=== PATIENT | female | born 1965 | race American Indian/Alaskan Native ===

== ENCOUNTER 2018-02-21 14:38 | Inpatient (IN) | payer OTHER ==
[2018-02-21 16:01] LABS: Basophils % (Auto) 0.8 % (0.0-1.8); Eosinophils % (Auto) 0.1 % (0.0-4.3); Hematocrit 45.9 % (30.3-42.9); Hemoglobin 15.1 gm/dl (10.1-14.3); Lymphocytes # (Auto) 0.9 K/mm3 (1.2-5.4); Lymphocytes % (Auto) 19.9 % (13.4-35.0); Mean Corpuscular HGB Conc 33 % (30-34); Mean Corpuscular Hemoglobin 32 pg (28-32); Mean Corpuscular Volume 98 fl (79-97); Monocytes # (Auto) 0.3 K/mm3 (0.0-0.8); Monocytes % (Auto) 6.1 % (0.0-7.3); Platelet Count 214 K/mm3 (140-440); Red Blood Count 4.69 M/mm3 (3.65-5.03); Red Cell Distribution Width 14.9 % (13.2-15.2)
[2018-02-21 16:22] LABS: BUN/Creatinine Ratio 14; Blood Urea Nitrogen 7 mg/dL (7-17); Calcium 8.6 mg/dL (8.4-10.2); Hemolysis Index 7
--- NOTE | 2018-02-21 16:53 | Emergency Department Report ---
History of Present Illness - General Chief Complaint: Overdose Stated Complaint: POSSIBLE OD Time Seen by Provider: 02/21/18 16:48 Source: patient, EMS Mode of arrival: Stretcher Limitations: No Limitations - History of Present Illness Initial Comments: She is a 52-year-old female presents to emergency room via EMS for overdose on trazodone. Patient states she took 20 trazodone in an attempt to kill herself. Patient states she was depressed and she wanted to end it all patient denies any physical complaints except for being sleepy. Patient denies taking any other drugs. Patient states she was drinking the night before. Patient denies chest pain or shortness of breath. Patient denies abdominal pain. Patient denies headache. MD Complaint: intentional overdose -: Sudden Intent: suicide attempt How Overdose Was Discovered: called family/friend Context: Intentional Overdose: financial issues Associated Symptoms: depression Treatments Prior to Arrival: oxygen - Related Data Allergies Allergy/AdvReac Type Severity Reaction Status Date / Time No Known Allergies Allergy Verified 02/21/18 15:25 ED Review of Systems ROS: Stated complaint: POSSIBLE OD Other details as noted in HPI Comment: All other systems reviewed and negative Constitutional: denies: chills, fever Eyes: denies: eye pain, eye discharge, vision change ENT: denies: ear pain, throat pain Respiratory: denies: cough, shortness of breath, wheezing Cardiovascular: denies: chest pain, palpitations Endocrine: no symptoms reported Gastrointestinal: denies: abdominal pain, nausea, diarrhea Genitourinary: denies: urgency, dysuria, discharge Musculoskeletal: denies: back pain, joint swelling, arthralgia Skin: denies: rash, lesions Neurological: denies: headache, weakness, paresthesias Psychiatric: denies: anxiety, depression Hematological/Lymphatic: denies: easy bleeding, easy bruising ED Past Medical Hx - Past Medical History Previous Medical History?: Yes Hx Psychiatric Treatment: Yes - Surgical History Past Surgical History?: No - Family History Family history: no significant - Social History Smoking Status: Current Every Day Smoker Substance Use Type: Alcohol ED Physical Exam - General Limitations: No Limitations General appearance: alert, in no apparent distress, lethargic (but easily arousable) - Head Head exam: Present: atraumatic, normocephalic - Eye Eye exam: Present: normal appearance - ENT ENT exam: Present: mucous membranes moist - Neck Neck exam: Present: normal inspection - Respiratory Respiratory exam: Present: normal lung sounds bilaterally. Absent: respiratory distress - Cardiovascular Cardiovascular Exam: Present: regular rate, normal rhythm. Absent: systolic murmur, diastolic murmur, rubs, gallop - GI/Abdominal GI/Abdominal exam: Present: soft, normal bowel sounds - Extremities Exam Extremities exam: Present: normal inspection - Back Exam Back exam: Present: normal inspection - Neurological Exam Neurological exam: Present: alert, oriented X3 - Psychiatric Psychiatric exam: Present: depressed - Skin Skin exam: Present: warm, dry, intact, normal color. Absent: rash ED Course Vital Signs 02/21/18 02/21/18 02/21/18 15:01 15:23 15:30 Temperature 97.6 F 98.7 F Pulse Rate 104 H 113 H Respiratory 14 14 Rate Blood Pressure 196/78 Blood Pressure 142/87 [Left] O2 Sat by Pulse 98 97 97 Oximetry - Reevaluation(s) Reevaluation #1: 1013 signed 02/21/18 16:49 Reevaluation #2: Poison control contacted and recommendations received. Poison control recommends observation and periodic EKGs due to the risk of QT prolongation also recommended watch for lethargy and bradycardia. Recommend a normal overdose labs 02/21/18 16:53 Reevaluation #3: Will admit patient to hospitalist service for further evaluation and treatment. Will admitted to obs 02/21/18 19:02 Reevaluation #4: Consultation the plan of care and admission. Also discussed all results with the patient 02/21/18 19:04 ED Medical Decision Making - Lab Data Result diagrams: 02/21/18 15:43 02/21/18 15:43 - EKG Data -: EKG Interpreted by [facility] EKG shows normal: sinus rhythm, axis, intervals, QRS complexes, ST-T waves Rate: normal - EKG Data Interpretation: no acute changes, normal EKG - Medical Decision Making 52-year-old female who presents emergency room with a suicide attempt by overdose with trazodone. Will admit patient for observation in order to monitor EKGs and vital signs. - Differential Diagnosis overdose. Suicidal ideations and suicide attempts. Lethargy. Depression Critical Care Time: Yes Critical care attestation.: If time is entered above; I have spent that time in minutes in the direct care of this critically ill patient, excluding procedure time. Critical Care Time: 30 minutes spent for Critical care time ED Disposition Clinical Impression: Suicidal ideation, Suicide attempt Overdose Qualifiers: Encounter type: initial encounter Injury intent: intentional self-harm Qualified Code(s): T50.902A - Poisoning by unspecified drugs, medicaments and biological substances, intentional self-harm, initial encounter Disposition: DC09 OP ADMIT IP TO THIS HOSP Is pt being admited?: Yes Does the pt Need Aspirin: No Condition: Serious Time of Disposition: 19:04
[2018-02-21 17:48] LABS: Bilirubin,Urine NEG (Negative); Blood,Urine NEG (Negative); Color,Urine Yellow (Yellow); Mucus,Urine 2+ /HPF; Urobilinogen,Urine < 2.0 mg/dL (<2.0)
[2018-02-21 17:52] LABS: Benzodiazepines Screen,Urine PRESUMPTIVE NEGATIVE; Cocaine Screen,Urine PRESUMPTIVE NEGATIVE; Methadone Screen,Urine PRESUMPTIVE NEGATIVE; Opiate Screen,Urine PRESUMPTIVE NEGATIVE
[2018-02-21 19:00] LABS: Amphetamine Screen,Urine PRESUMPTIVE POSITIVE; Cannabinoid Screen,Urine PRESUMPTIVE POSITIVE
--- NOTE | 2018-02-21 20:12 | History and Physical Report ---
History of Present Illness Chief complaint: I took pills History of present illness: 52 YO Female with Depression, HTN, Nicotine Dependence, ETOH Abuse presents to ED for evaluation. Pt states that she has been feeling sad, depresssed, helpless , and hopeless and took 20 Trazodone tablets in an attempt to take her own life. Pt was found confused, and lethargic by a family member. EMS notified, and upon arrival the patient was found to be lethargic. Pt transported to [facility] for further care and evaluation. Upon arrival, the patient was found to be encephalopathic, but is able to protect her airway. Poison Control notified. Pt admitted to telemetry. No reports of fever, chills, CP, Palpitations, NVD, Trauma, productive cough, abdominal pain, skin rash, headache, or recent ill contacts. Past History Past Medical History: hypertension Past Surgical History: No surgical history, Other (reviewed) Social history: single, smoking, alcohol abuse Family history: hypertension Medications and Allergies Allergies Allergy/AdvReac Type Severity Reaction Status Date / Time No Known Allergies Allergy Verified 02/21/18 15:25 Review of Systems ROS unobtainable: due to mental status Exam - Constitutional Vitals: Temp Pulse Resp BP Pulse Ox 98.7 F 113 H 14 142/87 97 02/21/18 15:23 02/21/18 15:23 02/21/18 15:23 02/21/18 15:23 02/21/18 15:30 General appearance: Present: no acute distress, disheveled - EENT Eyes: Present: PERRL ENT: hearing intact, clear oral mucosa - Neck Neck: Present: supple, normal ROM - Respiratory Respiratory effort: normal Respiratory: bilateral: diminished - Cardiovascular Heart Sounds: Present: S1 & S2. Absent: rub, click - Extremities Extremities: pulses symmetrical, No edema Peripheral Pulses: within normal limits - Abdominal General gastrointestinal: Present: soft, non-tender, non-distended, normal bowel sounds Female genitourinary: Present: normal - Integumentary Integumentary: Present: clear, warm, dry - Musculoskeletal Musculoskeletal: generalized weakness - Psychiatric Psychiatric: no intact judgment & insight, no memory intact, depressed - Neurologic Neurologic: CNII-XII intact, moves all extremities Results - Labs CBC & Chem 7: 02/21/18 15:43 05/04/18 15:43 Labs: Abnormal lab results 05/04/18 05/04/18 05/04/18 Range/Units 15:43 15:43 15:43 WBC (4.5-11.0) K/mm3 Hgb (10.1-14.3) gm/dl Hct (30.3-42.9) % MCV (79-97) fl Lymph # (1.2-5.4) K/mm3 Seg Neutrophils % (40.0-70.0) % Sodium 147 H (137-145) mmol/L Creatinine 0.5 L (0.7-1.2) mg/dL Salicylates < 0.3 L (2.8-20.0) mg/dL Acetaminophen < 5.0 L (10.0-30.0) ug/mL Plasma/Serum Alcohol (0-0.07) % 18 02/21/18 Range/Units 15:43 15:43 WBC 4.4 L (4.5-11.0) K/mm3 Hgb 15.1 H (10.1-14.3) gm/dl Hct 45.9 H (30.3-42.9) % MCV 98 H (79-97) fl Lymph # 0.9 L (1.2-5.4) K/mm3 Seg Neutrophils % 73.1 H (40.0-70.0) % Sodium (137-145) mmol/L Creatinine (0.7-1.2) mg/dL Salicylates (2.8-20.0) mg/dL Acetaminophen (10.0-30.0) ug/mL Plasma/Serum Alcohol 0.15 H (0-0.07) % Assessment and Plan - Patient Problems (1) Encephalopathy Current Visit: Yes Status: Acute Plan to address problem: CT head, neuro check, seizure precautions, IVF resuscitation. (2) Drug overdose, intentional Current Visit: Yes Status: Acute Qualifiers: Encounter type: initial encounter Qualified Code(s): T50.902A - Poisoning by unspecified drugs, medicaments and biological substances, intentional self- harm, initial encounter Plan to address problem: Poison control notified in ED, serial ekg (3) Suicide attempt Current Visit: Yes Status: Acute Plan to address problem: [address]3 [address] place, psychiatry consult (4) Alcohol withdrawal Current Visit: Yes Status: Acute Qualifiers: Complication of substance-induced condition: with delirium Qualified Code(s ): F10.231 - Alcohol dependence with withdrawal delirium Plan to address problem: CT Head, neuro checks, CIWA protocol, banana bag (5) DVT prophylaxis Current Visit: Yes Status: Acute Plan to address problem: scd to ble while in bed
[2018-02-21] MEDS ORDERED: TYLENOL PO PRN (20:22)
[2018-02-21] MEDS ORDERED: PROVENTIL IH PRN (20:22)
[2018-02-21] MEDS ORDERED: ATIVAN IV PRN (20:22)
[2018-02-21] MEDS ORDERED: ZOFRAN IV PRN (20:22)
[2018-02-21] MEDS ORDERED: SODIUM CHLORIDE FLUSH SYRINGE 10 ML IV PRN (20:22)
[2018-02-21] MEDS ORDERED: VITAMIN B-1 100 MG, FOLVITE 1 MG, INFUVITE 10 ML in NACL 0.9% 1000 ML 1,000 ML IV ONE (20:27)
--- NOTE | 2018-02-21 21:16 | Cat Scan Report ---
FINAL REPORT PROCEDURE: CT HEAD/BRAIN WO CON TECHNIQUE: Computerized tomography of the head was performed without contrast material. HISTORY: confusion COMPARISON: No prior studies are available for comparison. FINDINGS: Skull and scalp: Normal. Paranasal sinuses: Normal. Ventricles and subarachnoid spaces: Normal. Cerebrum: No evidence of hemorrhage, acute infarction or mass . Cerebellum and brainstem: No evidence of hemorrhage, acute infarction or mass. Vasculature: Normal. Comments: None. IMPRESSION: Normal Examination
[2018-02-21] MEDS: SODIUM CHLORIDE FLUSH SYRINGE 10 ML IV SCH (21:42)
--- NOTE | 2018-02-22 08:08 | Progress Note ---
Assessment and Plan Assessment and plan: (1) Encephalopathy Current Visit: Yes Status: Acute Plan to address problem: CT head, neuro check, seizure precautions, IVF resuscitation. (2) Drug overdose, intentional Current Visit: Yes Status: Acute Qualifiers: Encounter type: initial encounter Qualified Code(s): T50.902A - Poisoning by unspecified drugs, medicaments and biological substances, intentional self-harm, initial encounter Plan to address problem: Poison control notified in ED, serial ekg (3) Suicide attempt Current Visit: Yes Status: Acute Plan to address problem: [address] place, psychiatry consult (4) Alcohol withdrawal Current Visit: Yes Status: Acute Qualifiers: Complication of substance-induced condition: with delirium Qualified Code(s): F10.231 - Alcohol dependence with withdrawal delirium Plan to address problem: CT Head, neuro checks, CIWA protocol, banana bag (5) DVT prophylaxis Current Visit: Yes Status: Acute Plan to address problem: scd to ble while in bed History Interval history: Sincerely and examined medical records reviewed Patient complains of severe depression, helplessness and hopelessness Had similar symptoms and subsegments in the past Feels slightly better, teary and depressed Vital signs reviewed Safety seat at the bedside Hospitalist Physical - Constitutional Vitals: Temp Pulse Resp BP Pulse Ox 99.7 F H 85 20 118/71 91 02/22/18 00:51 02/22/18 05:43 02/22/18 05:43 02/22/18 05:43 02/22/18 05:43 General appearance: Present: no acute distress, obese, disheveled, other ( depressed) - EENT Eyes: Present: PERRL, EOM intact - Neck Neck: Present: supple, normal ROM - Respiratory Respiratory effort: normal Respiratory: bilateral: diminished, negative: rales, rhonchi, wheezing - Cardiovascular Rhythm: regular Heart Sounds: Present: S1 & S2 - Extremities Extremities: no ischemia, No edema Peripheral Pulses: within normal limits - Abdominal General gastrointestinal: soft, non-tender, non-distended, normal bowel sounds - Integumentary Integumentary: Present: clear, warm - Psychiatric Psychiatric: appropriate mood/affect, cooperative - Neurologic Neurologic: CNII-XII intact, moves all extremities Results - Labs CBC & Chem 7: 02/21/18 15:43 02/21/18 15:43 Labs: Laboratory Last Values WBC 4.4 K/mm3 (4.5-11.0) L 02/21/18 15:43 RBC 4.69 M/mm3 (3.65-5.03) 02/21/18 15:43 Hgb 15.1 gm/dl (10.1-14.3) H 02/21/18 15:43 Hct 45.9 % (30.3-42.9) H 02/21/18 15:43 MCV 98 fl (79-97) H 02/21/18 15:43 MCH 32 pg (28-32) 02/21/18 15:43 MCHC 33 % (30-34) 02/21/18 15:43 RDW 14.9 % (13.2-15.2) 02/21/18 15:43 Plt Count 214 K/mm3 (140-440) 02/21/18 15:43 Lymph % (Auto) 19.9 % (13.4-35.0) 02/21/18 15:43 [place] % (Auto) 6.1 % (0.0-7.3) 02/21/18 15:43 Eos % (Auto) 0.1 % (0.0-4.3) 02/21/18 15:43 Baso % (Auto) 0.8 % (0.0-1.8) 02/21/18 15:43 Lymph # 0.9 K/mm3 (1.2-5.4) L 02/21/18 15:43 [place] # 0.3 K/mm3 (0.0-0.8) 02/21/18 15:43 Eos # 0.0 K/mm3 (0.0-0.4) 02/21/18 15:43 Baso # 0.0 K/mm3 (0.0-0.1) 02/21/18 15:43 Seg Neutrophils % 73.1 % (40.0-70.0) H 02/21/18 15:43 Seg Neutrophils # 3.2 K/mm3 (1.8-7.7) 02/21/18 15:43 Sodium 147 mmol/L (137-145) H 02/21/18 15:43 Potassium 3.6 mmol/L (3.6-5.0) 02/21/18 15:43 Chloride 103.8 mmol/L (98-107) 02/21/18 15:43 Carbon Dioxide 25 mmol/L (22-30) 02/21/18 15:43 Anion Gap 22 mmol/L 02/21/18 15:43 BUN 7 mg/dL (7-17) 02/21/18 15:43 Creatinine 0.5 mg/dL (0.7-1.2) L 02/21/18 15:43 Estimated GFR > 60 ml/min 02/21/18 15:43 BUN/Creatinine Ratio 14 % 02/21/18 15:43 Glucose 95 mg/dL (65-100) 02/21/18 15:43 Calcium 8.6 mg/dL (8.4-10.2) 02/21/18 15:43 Urine Color Yellow (Yellow) 02/21/18 17:33 Urine Turbidity Clear (Clear) 02/21/18 17:33 Urine pH 5.0 (5.0-7.0) 02/21/18 17:33 Ur Specific [place] 1.020 (1.003-1.030) 02/21/18 17:33 Urine Protein 100 mg/dl mg/dL (Negative) 02/21/18 17:33 Urine Glucose (UA) Neg mg/dL (Negative) 02/21/18 17:33 Urine Ketones Neg mg/dL (Negative) 02/21/18 17:33 Urine Blood Neg (Negative) 02/21/18 17:33 Urine Nitrite Neg (Negative) 02/21/18 17:33 Urine Bilirubin Neg (Negative) 02/21/18 17:33 Urine Urobilinogen < 2.0 mg/dL (<2.0) 02/21/18 17:33 Ur Leukocyte Esterase Neg (Negative) 02/21/18 17:33 Urine WBC (Auto) 1.0 /HPF (0.0-6.0) 02/21/18 17:33 Urine RBC (Auto) 1.0 /HPF (0.0-6.0) 02/21/18 17:33 U Epithel Cells (Auto) 1.0 /HPF (0-13.0) 02/21/18 17:33 Urine Mucus 2+ /HPF 02/21/18 17:33 Salicylates < 0.3 mg/dL (2.8-20.0) L 02/21/18 15:43 Urine Opiates Screen Presumptive negative 02/21/18 17:33 Urine Methadone Screen Presumptive negative 02/21/18 17:33 Acetaminophen < 5.0 ug/mL (10.0-30.0) L 02/21/18 15:43 Ur Barbiturates Screen Presumptive negative 02/21/18 17:33 Ur Phencyclidine Scrn Presumptive negative 02/21/18 17:33 Ur Amphetamines Screen Presumptive positive 02/21/18 17:33 U Benzodiazepines Scrn Presumptive negative 02/21/18 17:33 Urine Cocaine Screen Presumptive negative 02/21/18 17:33 U Marijuana (THC) Screen Presumptive positive 02/21/18 17:33 Drugs of Abuse Note Disclamer 02/21/18 17:33 Plasma/Serum Alcohol 0.15 % (0-0.07) H 02/21/18 15:43
[2018-02-22] MEDS: SODIUM CHLORIDE FLUSH SYRINGE 10 ML IV SCH ×2 (10:11→21:32)
[2018-02-23] MEDS: SODIUM CHLORIDE FLUSH SYRINGE 10 ML IV SCH ×2 (10:01→22:07)
--- NOTE | 2018-02-23 15:10 | Progress Note ---
Assessment and Plan Assessment and plan: --Metabolic encephalopathy; multifactorial Continue supportive care, significantly improved, alert awake oriented 3 not in acute distress --Intentional overdose ; Poison control notified in ED, serial ekg Supportive care --Suicidal attempt ; Continue 1013 in place, psychiatry consult --History of alcohol use; Strongly advised to quit alcohol Closely monitor, continue CIWA protocol and banana bag --DVT prophylaxis; Lovenox Continue 1013 status Patient is medically stable to be discharged In transfer to inpatient psych facility History Interval history: Patient seen and examined medical records reviewed Feels better no depression or suicidal thoughts or ideation Alert awake oriented 3 Vital signs reviewed Safety seat at the bedside Hospitalist Physical - Constitutional Vitals: Temp Pulse Resp BP Pulse Ox 98.8 F 88 14 138/90 99 02/23/18 10:25 02/23/18 07:45 02/23/18 10:25 02/23/18 10:25 02/23/18 09:10 General appearance: Present: no acute distress, disheveled - EENT Eyes: Present: PERRL, EOM intact - Neck Neck: Present: supple, normal ROM - Respiratory Respiratory effort: normal Respiratory: negative: diminished, rales, rhonchi, wheezing - Cardiovascular Rhythm: regular Heart Sounds: Present: S1 & S2 - Extremities Extremities: no ischemia, No edema Peripheral Pulses: within normal limits - Abdominal General gastrointestinal: soft, non-tender, non-distended, distended - Integumentary Integumentary: Present: clear, warm - Psychiatric Psychiatric: appropriate mood/affect, cooperative - Neurologic Neurologic: CNII-XII intact, moves all extremities Results - Labs CBC & Chem 7: 02/21/18 15:43 02/21/18 15:43 Labs: Laboratory Last Values WBC 4.4 K/mm3 (4.5-11.0) L 02/21/18 15:43 RBC 4.69 M/mm3 (3.65-5.03) 02/21/18 15:43 Hgb 15.1 gm/dl (10.1-14.3) H 02/21/18 15:43 Hct 45.9 % (30.3-42.9) H 02/21/18 15:43 MCV 98 fl (79-97) H 02/21/18 15:43 MCH 32 pg (28-32) 02/21/18 15:43 MCHC 33 % (30-34) 02/21/18 15:43 RDW 14.9 % (13.2-15.2) 02/21/18 15:43 Plt Count 214 K/mm3 (140-440) 02/21/18 15:43 Lymph % (Auto) 19.9 % (13.4-35.0) 02/21/18 15:43 [place] % (Auto) 6.1 % (0.0-7.3) 02/21/18 15:43 Eos % (Auto) 0.1 % (0.0-4.3) 02/21/18 15:43 Baso % (Auto) 0.8 % (0.0-1.8) 02/21/18 15:43 Lymph # 0.9 K/mm3 (1.2-5.4) L 02/21/18 15:43 [place] # 0.3 K/mm3 (0.0-0.8) 02/21/18 15:43 Eos # 0.0 K/mm3 (0.0-0.4) 02/21/18 15:43 Baso # 0.0 K/mm3 (0.0-0.1) 02/21/18 15:43 Seg Neutrophils % 73.1 % (40.0-70.0) H 02/21/18 15:43 Seg Neutrophils # 3.2 K/mm3 (1.8-7.7) 02/21/18 15:43 Sodium 147 mmol/L (137-145) H 02/21/18 15:43 Potassium 3.6 mmol/L (3.6-5.0) 02/21/18 15:43 Chloride 103.8 mmol/L (98-107) 02/21/18 15:43 Carbon Dioxide 25 mmol/L (22-30) 02/21/18 15:43 Anion Gap 22 mmol/L 02/21/18 15:43 BUN 7 mg/dL (7-17) 02/21/18 15:43 Creatinine 0.5 mg/dL (0.7-1.2) L 02/21/18 15:43 Estimated GFR > 60 ml/min 02/21/18 15:43 BUN/Creatinine Ratio 14 % 02/21/18 15:43 Glucose 95 mg/dL (65-100) 02/21/18 15:43 Calcium 8.6 mg/dL (8.4-10.2) 02/21/18 15:43 Urine Color Yellow (Yellow) 02/21/18 17:33 Urine Turbidity Clear (Clear) 02/21/18 17:33 Urine pH 5.0 (5.0-7.0) 02/21/18 17:33 Ur Specific [place] 1.020 (1.003-1.030) 02/21/18 17:33 Urine Protein 100 mg/dl mg/dL (Negative) 02/21/18 17:33 Urine Glucose (UA) Neg mg/dL (Negative) 02/21/18 17:33 Urine Ketones Neg mg/dL (Negative) 02/21/18 17:33 Urine Blood Neg (Negative) 02/21/18 17:33 Urine Nitrite Neg (Negative) 02/21/18 17:33 Urine Bilirubin Neg (Negative) 02/21/18 17:33 Urine Urobilinogen < 2.0 mg/dL (<2.0) 02/21/18 17:33 Ur Leukocyte Esterase Neg (Negative) 02/21/18 17:33 Urine WBC (Auto) 1.0 /HPF (0.0-6.0) 02/21/18 17:33 Urine RBC (Auto) 1.0 /HPF (0.0-6.0) 02/21/18 17:33 U Epithel Cells (Auto) 1.0 /HPF (0-13.0) 02/21/18 17:33 Urine Mucus 2+ /HPF 02/21/18 17:33 Salicylates < 0.3 mg/dL (2.8-20.0) L 02/21/18 15:43 Urine Opiates Screen Presumptive negative 02/21/18 17:33 Urine Methadone Screen Presumptive negative 02/21/18 17:33 Acetaminophen < 5.0 ug/mL (10.0-30.0) L 02/21/18 15:43 Ur Barbiturates Screen Presumptive negative 02/21/18 17:33 Ur Phencyclidine Scrn Presumptive negative 02/21/18 17:33 Ur Amphetamines Screen Presumptive positive 02/21/18 17:33 U Benzodiazepines Scrn Presumptive negative 02/21/18 17:33 Urine Cocaine Screen Presumptive negative 02/21/18 17:33 U Marijuana (THC) Screen Presumptive positive 02/21/18 17:33 Drugs of Abuse Note Disclamer 02/21/18 17:33 Plasma/Serum Alcohol 0.15 % (0-0.07) H 02/21/18 15:43
--- NOTE | 2018-02-23 15:17 | Discharge Summary ---
Providers - Providers Date of Admission: 02/21/18 20:22 Date of discharge: 02/23/18 Attending physician: HECTOR ACOSTA 02/22/18 08:09 psychiatry consult [Consult to Mental Health] [CONS] Routine Reason For Exam: drug overdose /? suicidal attempt Place consult to:: Mental Health Notified:: Liliam RODRIGUEZmanager intensive care unit physician: [facility] Hospitalization Reason for admission: suicidal attempt and ideation Condition: Serious Pertinent studies: CT head without contrast; no acute abnormality noted Hospital course: 52-year-old -[place] female patient with significant history of depression alcohol and tobacco use was admitted through emergency room with a history of intentional drug overdose with trazodone [20 pills ]with intent to calm herself Patient was initially evaluated poison control was called by ER physician and advised to monitor EKG, patient was placed on 1013 status Evaluated by psych, recommended inpatient psych transfer once medically stable Patient was closely monitored on CIWA protocol and suicidal watch Today she is comfortable no new complaints,Vital signs stable Face to face evaluation physical examination done by me prior to discharge is unremarkable Patient is hemodynamically clinically and medically stable for discharge And transfer to inpatient psych facility today Plan of care discussed with the patient her nurse Final diagnosis; management --Metabolic encephalopathy; resolved --Intentional overdose ; stable --Suicidal attempt ; 1013 status --History of alcohol use; --Tobacco use --h/o depression Disposition: DC/[facility] HOSP/PSY UNIT Time spent for discharge: 32 min Core Measure Documentation - Palliative Care Palliative Care/ Comfort Measures: Not Applicable - Core Measures Any of the following diagnoses?: none Exam - Constitutional Vitals: Temp Pulse Resp BP Pulse Ox 98.8 F 88 14 138/90 99 02/23/18 10:25 02/23/18 07:45 02/23/18 10:25 02/23/18 10:25 02/23/18 09:10 General appearance: Present: no acute distress, well-nourished - EENT Eyes: Present: PERRL, EOM intact - Neck Neck: Present: supple, normal ROM - Respiratory Respiratory effort: normal Respiratory: bilateral: diminished, negative: rales, rhonchi, wheezing - Cardiovascular Rhythm: regular Heart Sounds: Present: S1 & S2 - Extremities Extremities: no ischemia, No edema Peripheral Pulses: within normal limits - Abdominal General gastrointestinal: Present: soft, non-tender, non-distended, normal bowel sounds - Integumentary Integumentary: Present: clear, warm - Musculoskeletal Musculoskeletal: strength equal bilaterally - Psychiatric Psychiatric: appropriate mood/affect, cooperative - Neurologic Neurologic: CNII-XII intact, moves all extremities Plan Activity: advance as tolerated, fall precautions, other ( 1013) Diet: regular Special Instructions: smoking cessation Durable Medical Equipment Needed Upon Discharge: other (advised to quit alcohol intake) Additional Instructions: DC and transfer to inpatient psych facility. Suicidal watch Follow up with: PRIMARY CARE, [Primary Care Provider] - 3-5 Days
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
[2018-02-23] MEDS: ABILIFY PO SCH (22:05)
[2018-02-24] MEDS: SODIUM CHLORIDE FLUSH SYRINGE 10 ML IV SCH ×2 (09:06→21:30)
--- NOTE | 2018-02-24 14:35 | Progress Note ---
Subjective - Reason for Consult Consult date: 02/24/18 Reason for consult: Psychiatry Follow-up - Chief Complaint Chief complaint: "I wanted to go to sleep." Mental Status Exam - Vital signs Last Vital Signs Temp 97.9 F 02/24/18 12:00 Pulse 91 H 02/24/18 12:00 Resp 18 02/24/18 12:00 BP 144/91 02/24/18 12:00 Pulse Ox 99 02/24/18 12:00 - Exam Narrative exam: MSE: Appearance: calm, cooperative Behavior: regular eye contact Speech: regular rate and tone Mood: "tokay" Affect: congruent to mood Thought Process: circumstantial Thought Content: denies SI/HI's and AVH's Motor Activity: lying in bed Cognition: A/O x3 Insight: variable Judgment: variable
--- NOTE | 2018-02-24 14:41 | Progress Note ---
Subjective - Reason for Consult Consult date: 02/24/18 Reason for consult: Psychiatry Follow-up - Chief Complaint Chief complaint: "Hello" 52-year-old single female presented to emergency room via EMS for overdose on trazodone 50mg tablets. Today the interview started out pleasant. She stated that she took [place] 300 mg PO daily. She stated that she only took the Trazodone pills to get some rest, because she couldn't sleep. She stated that her actions was unsafe. She denies SI/HI's and AVH's. The patient became agitated after I explain to her the criteria for the 1013. She stated that she felt like she was in "intermediate" because she cannot go outside. She stated, The 1013 is good for 72 hours." Again, I tried to explain to her the 1013, she stated, "I'm leaving." I attempted to deescalate the situation, but she was adamant about leaving by taking off her telemetry box and exiting her room. Security was called and the patient was returned to her room. Mental Status Exam - Vital signs Last Vital Signs Temp 97.9 F 02/24/18 12:00 Pulse 91 H 02/24/18 12:00 Resp 18 02/24/18 12:00 BP 144/91 02/24/18 12:00 Pulse Ox 99 02/24/18 12:00 - Exam Narrative exam: MSE: Appearance: calm, cooperative during the first half of the interview Behavior: regular eye contact Speech: regular rate and tone Mood: "okay" than became agitated Affect: congruent to mood Thought Process: circumstantial Thought Content: denies SI/HI's and AVH's Motor Activity: lying in bed Cognition: A/O x3 Insight: variable Judgment: variable Assessment and Plan Impression: Bipolar DO, Current Episode Depressed. PTSD. Cannabis Use DO. Alcohol Use DO. Overdosed on Trazodone 50mg (10-20 tablets) DDx: R/O Substance Induced Mood DO Recommendations/Plan: Continue 1013 with placement to inpatient psy services. Continue Abilify 10 mg PO Daily for mood and start [place] 300 mg PO daily for mood. Discussed possible metabolic side effects of Abilify with patient.
[2018-02-24] MEDS: ESKALITH PO SCH (17:02)
--- NOTE | 2018-02-24 17:10 | Progress Note ---
Assessment and Plan Assessment and plan: --Metabolic encephalopathy; multifactorial Resolved, patient is alert awake oriented 3 s --Intentional overdose ; trazodone pills Stable, no adverse signs or symptoms --Suicidal attempt ; Continue 101[address], psychiatry following --History of alcohol use; No evidence of withdrawal symptoms ,Strongly advised to quit alcohol Closely monitor, continue [facility] protocol --DVT prophylaxis;Lovenox Continue 1013 status Patient is medically stable to be discharged And transferred to inpatient psych facility Plan of care discussed with the psych and case management Continue 1013 status History Interval history: 52-year-old female patient was admitted through emergency room with intentional overdose with trazodone And suicidal attempt with severe depression, poison control was contacted by ED , advised to monitor telemetry and EKG Patient has no new symptoms, medically stable for discharge to inpatient psych facility Today Patient seen and examined medical records reviewed Feels slightly better no new complaints Denies suicidal thoughts or ideation, denies depressive thoughts Safety still the bedside Alert awake Oriented 3 Vital signs reviewed Hospitalist Physical - Constitutional Vitals: Temp Pulse Resp BP Pulse Ox 97.9 F 91 H 18 144/91 99 02/24/18 12:00 02/24/18 12:00 02/24/18 12:00 02/24/18 12:00 02/24/18 12:00 General appearance: Present: no acute distress, well-nourished, obese - EENT Eyes: Present: PERRL, EOM intact - Neck Neck: Present: supple, normal ROM - Respiratory Respiratory effort: normal Respiratory: bilateral: diminished, negative: rales, rhonchi, wheezing - Cardiovascular Rhythm: regular Heart Sounds: Present: S1 & S2 - Extremities Extremities: no ischemia, No edema - Abdominal General gastrointestinal: soft, non-tender, non-distended, normal bowel sounds - Integumentary Integumentary: Present: clear, warm - Psychiatric Psychiatric: appropriate mood/affect, cooperative - Neurologic Neurologic: CNII-XII intact, moves all extremities Results - Labs CBC & Chem 7: 02/21/18 15:43 02/21/18 15:43 Labs: Laboratory Last Values WBC 4.4 K/mm3 (4.5-11.0) L 02/21/18 15:43 RBC 4.69 M/mm3 (3.65-5.03) 02/21/18 15:43 Hgb 15.1 gm/dl (10.1-14.3) H 02/21/18 15:43 Hct 45.9 % (30.3-42.9) H 02/21/18 15:43 MCV 98 fl (79-97) H 02/21/18 15:43 MCH 32 pg (28-32) 02/21/18 15:43 MCHC 33 % (30-34) 02/21/18 15:43 RDW 14.9 % (13.2-15.2) 02/21/18 15:43 Plt Count 214 K/mm3 (140-440) 02/21/18 15:43 Lymph % (Auto) 19.9 % (13.4-35.0) 02/21/18 15:43 [place] % (Auto) 6.1 % (0.0-7.3) 02/21/18 15:43 Eos % (Auto) 0.1 % (0.0-4.3) 02/21/18 15:43 Baso % (Auto) 0.8 % (0.0-1.8) 02/21/18 15:43 Lymph # 0.9 K/mm3 (1.2-5.4) L 02/21/18 15:43 [place] # 0.3 K/mm3 (0.0-0.8) 02/21/18 15:43 Eos # 0.0 K/mm3 (0.0-0.4) 02/21/18 15:43 Baso # 0.0 K/mm3 (0.0-0.1) 02/21/18 15:43 Seg Neutrophils % 73.1 % (40.0-70.0) H 02/21/18 15:43 Seg Neutrophils # 3.2 K/mm3 (1.8-7.7) 02/21/18 15:43 Sodium 147 mmol/L (137-145) H 02/21/18 15:43 Potassium 3.6 mmol/L (3.6-5.0) 02/21/18 15:43 Chloride 103.8 mmol/L (98-107) 02/21/18 15:43 Carbon Dioxide 25 mmol/L (22-30) 02/21/18 15:43 Anion Gap 22 mmol/L 02/21/18 15:43 BUN 7 mg/dL (7-17) 02/21/18 15:43 Creatinine 0.5 mg/dL (0.7-1.2) L 02/21/18 15:43 Estimated GFR > 60 ml/min 02/21/18 15:43 BUN/Creatinine Ratio 14 % 02/21/18 15:43 Glucose 95 mg/dL (65-100) 02/21/18 15:43 Calcium 8.6 mg/dL (8.4-10.2) 02/21/18 15:43 Urine Color Yellow (Yellow) 02/21/18 17:33 Urine Turbidity Clear (Clear) 02/21/18 17:33 Urine pH 5.0 (5.0-7.0) 02/21/18 17:33 Ur Specific [place] 1.020 (1.003-1.030) 02/21/18 17:33 Urine Protein 100 mg/dl mg/dL (Negative) 02/21/18 17:33 Urine Glucose (UA) Neg mg/dL (Negative) 02/21/18 17:33 Urine Ketones Neg mg/dL (Negative) 02/21/18 17:33 Urine Blood Neg (Negative) 02/21/18 17:33 Urine Nitrite Neg (Negative) 02/21/18 17:33 Urine Bilirubin Neg (Negative) 02/21/18 17:33 Urine Urobilinogen < 2.0 mg/dL (<2.0) 02/21/18 17:33 Ur Leukocyte Esterase Neg (Negative) 02/21/18 17:33 Urine WBC (Auto) 1.0 /HPF (0.0-6.0) 02/21/18 17:33 Urine RBC (Auto) 1.0 /HPF (0.0-6.0) 02/21/18 17:33 U Epithel Cells (Auto) 1.0 /HPF (0-13.0) 02/21/18 17:33 Urine Mucus 2+ /HPF 02/21/18 17:33 Salicylates < 0.3 mg/dL (2.8-20.0) L 02/21/18 15:43 Urine Opiates Screen Presumptive negative 02/21/18 17:33 Urine Methadone Screen Presumptive negative 02/21/18 17:33 Acetaminophen < 5.0 ug/mL (10.0-30.0) L 02/21/18 15:43 Ur Barbiturates Screen Presumptive negative 02/21/18 17:33 Ur Phencyclidine Scrn Presumptive negative 02/21/18 17:33 Ur Amphetamines Screen Presumptive positive 02/21/18 17:33 U Benzodiazepines Scrn Presumptive negative 02/21/18 17:33 [place] 0.1 mmol/L (0.0-1.2) 02/23/18 20:56 Urine Cocaine Screen Presumptive negative 02/21/18 17:33 U Marijuana (THC) Screen Presumptive positive 02/21/18 17:33 Drugs of Abuse Note Disclamer 02/21/18 17:33 Plasma/Serum Alcohol 0.15 % (0-0.07) H 02/21/18 15:43
[2018-02-24] MEDS: ABILIFY PO SCH (21:23)
[2018-02-25 08:58] LABS: Basophils % (Auto) 0.5 % (0.0-1.8); Eosinophils % (Auto) 0.5 % (0.0-4.3); Hemoglobin 15.5 gm/dl (10.1-14.3); Lymphocytes # (Auto) 1.4 K/mm3 (1.2-5.4); Lymphocytes % (Auto) 18.4 % (13.4-35.0); Mean Corpuscular HGB Conc 35 % (30-34); Mean Corpuscular Hemoglobin 34 pg (28-32); Mean Corpuscular Volume 96 fl (79-97); Monocytes # (Auto) 0.6 K/mm3 (0.0-0.8); Monocytes % (Auto) 8.1 % (0.0-7.3); Platelet Count 164 K/mm3 (140-440); Red Blood Count 4.59 M/mm3 (3.65-5.03); Red Cell Distribution Width 14.3 % (13.2-15.2)
[2018-02-25 09:08] LABS: BUN/Creatinine Ratio 8; Blood Urea Nitrogen 4 mg/dL (7-17); Calcium 9.5 mg/dL (8.4-10.2); Hemolysis Index 8
[2018-02-25] MEDS: ESKALITH PO SCH (10:27)
[2018-02-25] MEDS: SODIUM CHLORIDE FLUSH SYRINGE 10 ML IV SCH ×2 (10:28→22:27)
--- NOTE | 2018-02-25 11:40 | Progress Note ---
Subjective - Reason for Consult Consult date: 02/25/18 Reason for consult: Psychiatry Follow-up - Chief Complaint Chief complaint: "I was upset" 52-year-old single female presented to emergency room via EMS for overdose on trazodone 50mg tablets. Today the calm and cooperative during the assessment. She stated that she wanted to apologiize for her actions yesterday. She stated that a staff member informed her that she will be able to leave once seen by psychiatry. She stated that she was upset when told that she would not be discharged. She stated getting better mentally is "priority" for her. She denies SI/HI's and AVH's. She denies any side effects of her medications. She stated not sleeping well last night. Mental Status Exam - Vital signs Last Vital Signs Temp 99.3 F 02/25/18 04:06 Pulse 88 02/25/18 04:06 Resp 16 02/25/18 04:06 BP 118/82 02/25/18 04:06 Pulse Ox 97 02/25/18 04:06 - Exam Narrative exam: MSE: Appearance: calm, cooperative Behavior: regular eye contact Speech: regular rate and tone Mood: "okay" Affect: congruent to mood Thought Process: circumstantial Thought Content: denies SI/HI's and AVH's Motor Activity: lying in bed Cognition: A/O x3 Insight: fair Judgment: variable Assessment and Plan Impression: Bipolar DO, Current Episode Depressed. PTSD. Cannabis Use DO. Alcohol Use DO. Overdosed on Trazodone 50mg (10-20 tablets) DDx: R/O Substance Induced Mood DO Recommendations/Plan: Continue 1013 with placement to inpatient psy services. Continue Abilify 10 mg PO Daily for mood and [place] 300 mg PO daily for mood. Start Benadryl 25 mg PO HS PRN for sleep. Discussed possible metabolic side effects of Abilify with patient.
[2018-02-25] MEDS ORDERED: MAGNESIUM SULFATE 2GM/50ML 2 GM/50 ML BAG IV ONE (12:30)
--- NOTE | 2018-02-25 18:52 | Progress Note ---
Assessment and Plan Assessment and plan: --Intentional overdose ; trazodone pills Stable, no adverse signs or symptoms --Metabolic encephalopathy; multifactorial Resolved, patient is alert awake oriented 3 --Suicidal attempt ; Continue [address], psychiatry following --History of alcohol use; No evidence of withdrawal symptoms ,Strongly advised to quit alcohol Closely monitor, continue [facility] protocol --DVT prophylaxis;Lovenox Continue 1013 status Patient is medically stable to be discharged And transferred to inpatient psych facility Plan of care discussed with the psych and case management Continue 1013 status History Interval history: Patient seen and evaluated medical records reviewed Medically stable for discharge and transfer to inpatient psych facility Vital signs reviewed Hospitalist Physical - Constitutional Vitals: Temp Pulse Resp BP Pulse Ox 99.3 F 88 16 118/82 97 02/25/18 04:06 02/25/18 04:06 02/25/18 04:06 02/25/18 04:06 02/25/18 04:06 General appearance: Present: no acute distress, well-nourished, obese - EENT Eyes: Present: PERRL, EOM intact - Neck Neck: Present: supple, normal ROM - Respiratory Respiratory effort: normal Respiratory: bilateral: diminished, negative: rales, rhonchi, wheezing - Cardiovascular Rhythm: regular Heart Sounds: Present: S1 & S2 - Extremities Extremities: no ischemia, No edema - Abdominal General gastrointestinal: soft, non-tender, non-distended, normal bowel sounds - Integumentary Integumentary: Present: clear, warm - Psychiatric Psychiatric: appropriate mood/affect, cooperative - Neurologic Neurologic: CNII-XII intact, moves all extremities Results - Labs CBC & Chem 7: 02/25/18 08:40 02/25/18 08:40 Labs: Laboratory Last Values WBC 7.5 K/mm3 (4.5-11.0) 02/25/18 08:40 RBC 4.59 M/mm3 (3.65-5.03) 02/25/18 08:40 Hgb 15.5 gm/dl (10.1-14.3) H 02/25/18 08:40 Hct 44.0 % (30.3-42.9) H 02/25/18 08:40 MCV 96 fl (79-97) 02/25/18 08:40 MCH 34 pg (28-32) H 02/25/18 08:40 MCHC 35 % (30-34) H 02/25/18 08:40 RDW 14.3 % (13.2-15.2) 02/25/18 08:40 Plt Count 164 K/mm3 (140-440) 02/25/18 08:40 Lymph % (Auto) 18.4 % (13.4-35.0) 02/25/18 08:40 [place] % (Auto) 8.1 % (0.0-7.3) H 02/25/18 08:40 Eos % (Auto) 0.5 % (0.0-4.3) 02/25/18 08:40 Baso % (Auto) 0.5 % (0.0-1.8) 02/25/18 08:40 Lymph # 1.4 K/mm3 (1.2-5.4) 02/25/18 08:40 [place] # 0.6 K/mm3 (0.0-0.8) 02/25/18 08:40 Eos # 0.0 K/mm3 (0.0-0.4) 02/25/18 08:40 Baso # 0.0 K/mm3 (0.0-0.1) 02/25/18 08:40 Seg Neutrophils % 72.5 % (40.0-70.0) H 02/25/18 08:40 Seg Neutrophils # 5.5 K/mm3 (1.8-7.7) 02/25/18 08:40 Sodium 137 mmol/L (137-145) D 02/25/18 08:40 Potassium 3.6 mmol/L (3.6-5.0) 02/25/18 08:40 Chloride 98.0 mmol/L (98-107) 02/25/18 08:40 Carbon Dioxide 28 mmol/L (22-30) 02/25/18 08:40 Anion Gap 15 mmol/L 02/25/18 08:40 BUN 4 mg/dL (7-17) L 02/25/18 08:40 Creatinine 0.5 mg/dL (0.7-1.2) L 02/25/18 08:40 Estimated GFR > 60 ml/min 02/25/18 08:40 BUN/Creatinine Ratio 8 % 02/25/18 08:40 Glucose 110 mg/dL (65-100) H 02/25/18 08:40 Calcium 9.5 mg/dL (8.4-10.2) 02/25/18 08:40 Phosphorus 3.90 mg/dL (2.5-4.5) 02/25/18 08:40 Magnesium 1.50 mg/dL (1.7-2.3) L 02/25/18 08:40 Urine Color Yellow (Yellow) 02/21/18 17:33 Urine Turbidity Clear (Clear) 02/21/18 17:33 Urine pH 5.0 (5.0-7.0) 02/21/18 17:33 Ur Specific [place] 1.020 (1.003-1.030) 02/21/18 17:33 Urine Protein 100 mg/dl mg/dL (Negative) 02/21/18 17:33 Urine Glucose (UA) Neg mg/dL (Negative) 02/21/18 17:33 Urine Ketones Neg mg/dL (Negative) 02/21/18 17:33 Urine Blood Neg (Negative) 02/21/18 17:33 Urine Nitrite Neg (Negative) 02/21/18 17:33 Urine Bilirubin Neg (Negative) 02/21/18 17:33 Urine Urobilinogen < 2.0 mg/dL (<2.0) 02/21/18 17:33 Ur Leukocyte Esterase Neg (Negative) 02/21/18 17:33 Urine WBC (Auto) 1.0 /HPF (0.0-6.0) 02/21/18 17:33 Urine RBC (Auto) 1.0 /HPF (0.0-6.0) 02/21/18 17:33 U Epithel Cells (Auto) 1.0 /HPF (0-13.0) 02/21/18 17:33 Urine Mucus 2+ /HPF 02/21/18 17:33 Salicylates < 0.3 mg/dL (2.8-20.0) L 02/21/18 15:43 Urine Opiates Screen Presumptive negative 02/21/18 17:33 Urine Methadone Screen Presumptive negative 02/21/18 17:33 Acetaminophen < 5.0 ug/mL (10.0-30.0) L 02/21/18 15:43 Ur Barbiturates Screen Presumptive negative 02/21/18 17:33 Ur Phencyclidine Scrn Presumptive negative 02/21/18 17:33 Ur Amphetamines Screen Presumptive positive 02/21/18 17:33 U Benzodiazepines Scrn Presumptive negative 02/21/18 17:33 [place] 0.1 mmol/L (0.0-1.2) 02/23/18 20:56 Urine Cocaine Screen Presumptive negative 02/21/18 17:33 U Marijuana (THC) Screen Presumptive positive 02/21/18 17:33 Drugs of Abuse Note Disclamer 02/21/18 17:33 Plasma/Serum Alcohol 0.15 % (0-0.07) H 02/21/18 15:43
[2018-02-25] MEDS: ABILIFY PO SCH (22:27)
[2018-02-25] MEDS: BENADRYL PO PRN (22:27)
[2018-02-26] MEDS ORDERED: APRESOLINE PO ONE (10:00)
[2018-02-26] MEDS: ESKALITH PO SCH (12:21)
[2018-02-26] MEDS: SODIUM CHLORIDE FLUSH SYRINGE 10 ML IV SCH ×2 (12:22→23:45)
--- NOTE | 2018-02-26 13:14 | Progress Note ---
Subjective - Reason for Consult Consult date: 02/26/18 Reason for consult: Psychiatric Follow-up Evaluation - Chief Complaint Chief complaint: "I was upset" 52-year-old single female presented to emergency room via EMS for overdose on trazodone 50mg tablets. Today the calm and cooperative during the assessment. She stated that she wanted to apologiize for her actions yesterday. She stated that a staff member informed her that she will be able to leave once seen by psychiatry. She stated that she was upset when told that she would not be discharged. She stated getting better mentally is "priority" for her. She denies SI/HI's and AVH's. She denies any side effects of her medications. She stated not sleeping well last night. Mental Status Exam - Vital signs Last Vital Signs Temp 98.1 F 02/26/18 08:00 Pulse 98 H 02/26/18 10:31 Resp 17 02/26/18 08:00 BP 140/10 02/26/18 10:31 Pulse Ox 99 02/25/18 23:09 - Exam Narrative exam: Mental Status Exam: Appearance: calm, cooperative Behavior: regular eye contact Speech: regular rate and tone Mood: "okay" Affect: congruent to mood Thought Process: circumstantial Thought Content: denies SI/HI's and AVH's Motor Activity: lying in bed Cognition: A/O x3 Insight: fair Judgment: variable Assessment and Plan Impression: Bipolar DO, Current Episode Depressed. PTSD. Cannabis Use DO. Alcohol Use DO. Overdosed on Trazodone 50mg (10-20 tablets) DDx: R/O Substance Induced Mood DO Recommendations/Plan: 1. Continue 1013 with placement to inpatient psy services. 2. Continue Abilify 10 mg PO Daily for mood and [place] 300 mg PO daily for mood. 3. Continue Benadryl 25 mg PO HS PRN for sleep. 4. Discussed possible metabolic side effects of all medications with patient.
[2018-02-26] MEDS: APRESOLINE PO SCH ×2 (14:00→22:23)
--- NOTE | 2018-02-26 17:19 | Progress Note ---
Assessment and Plan Assessment and plan: --Intentional overdose ; trazodone pills Stable, no new symptoms --Metabolic encephalopathy; multifactorial Resolved, --Suicidal attempt ; Continue [address], psychiatry coming inpatient psych management Awaiting transfer --History of alcohol use; No evidence of withdrawal symptoms ,Strongly advised to quit alcohol continue [facility] protocol --DVT prophylaxis;Lovenox Continue 1013 status Patient is medically stable to be discharged And transferred to inpatient psych facility Continue 1013 status History Interval history: Patient seen and examined medical records reviewed Patient has no new complaints, wants to go home Denies suicidal thoughts or ideation Medically stable for discharge Awaiting inpatient psych placement youth agent at the bedside Vital signs reviewed Hospitalist Physical - Constitutional Vitals: Temp Pulse Resp BP Pulse Ox 99.0 F 87 16 141/87 97 02/26/18 15:15 02/26/18 15:15 02/26/18 15:15 02/26/18 15:15 02/26/18 15:15 General appearance: Present: no acute distress, well-nourished, obese - EENT Eyes: Present: PERRL, EOM intact - Neck Neck: Present: supple, normal ROM - Respiratory Respiratory effort: normal Respiratory: negative: rales, rhonchi, wheezing - Cardiovascular Rhythm: regular Heart Sounds: Present: S1 & S2 - Extremities Extremities: No edema Peripheral Pulses: within normal limits - Abdominal General gastrointestinal: soft, non-tender, normal bowel sounds - Integumentary Integumentary: Present: clear, warm - Psychiatric Psychiatric: appropriate mood/affect, cooperative - Neurologic Neurologic: CNII-XII intact, moves all extremities Results - Labs CBC & Chem 7: 02/25/18 08:40 02/25/18 08:40 Labs: Laboratory Last Values WBC 7.5 K/mm3 (4.5-11.0) 02/25/18 08:40 RBC 4.59 M/mm3 (3.65-5.03) 02/25/18 08:40 Hgb 15.5 gm/dl (10.1-14.3) H 02/25/18 08:40 Hct 44.0 % (30.3-42.9) H 02/25/18 08:40 MCV 96 fl (79-97) 02/25/18 08:40 MCH 34 pg (28-32) H 02/25/18 08:40 MCHC 35 % (30-34) H 02/25/18 08:40 RDW 14.3 % (13.2-15.2) 02/25/18 08:40 Plt Count 164 K/mm3 (140-440) 02/25/18 08:40 Lymph % (Auto) 18.4 % (13.4-35.0) 02/25/18 08:40 [place] % (Auto) 8.1 % (0.0-7.3) H 02/25/18 08:40 Eos % (Auto) 0.5 % (0.0-4.3) 02/25/18 08:40 Baso % (Auto) 0.5 % (0.0-1.8) 02/25/18 08:40 Lymph # 1.4 K/mm3 (1.2-5.4) 02/25/18 08:40 [place] # 0.6 K/mm3 (0.0-0.8) 02/25/18 08:40 Eos # 0.0 K/mm3 (0.0-0.4) 02/25/18 08:40 Baso # 0.0 K/mm3 (0.0-0.1) 02/25/18 08:40 Seg Neutrophils % 72.5 % (40.0-70.0) H 02/25/18 08:40 Seg Neutrophils # 5.5 K/mm3 (1.8-7.7) 02/25/18 08:40 Sodium 137 mmol/L (137-145) D 02/25/18 08:40 Potassium 3.6 mmol/L (3.6-5.0) 02/25/18 08:40 Chloride 98.0 mmol/L (98-107) 02/25/18 08:40 Carbon Dioxide 28 mmol/L (22-30) 02/25/18 08:40 Anion Gap 15 mmol/L 02/25/18 08:40 BUN 4 mg/dL (7-17) L 02/25/18 08:40 Creatinine 0.5 mg/dL (0.7-1.2) L 02/25/18 08:40 Estimated GFR > 60 ml/min 02/25/18 08:40 BUN/Creatinine Ratio 8 % 02/25/18 08:40 Glucose 110 mg/dL (65-100) H 02/25/18 08:40 Calcium 9.5 mg/dL (8.4-10.2) 02/25/18 08:40 Phosphorus 3.90 mg/dL (2.5-4.5) 02/25/18 08:40 Magnesium 1.50 mg/dL (1.7-2.3) L 02/25/18 08:40 Urine Color Yellow (Yellow) 02/21/18 17:33 Urine Turbidity Clear (Clear) 02/21/18 17:33 Urine pH 5.0 (5.0-7.0) 02/21/18 17:33 Ur Specific [place] 1.020 (1.003-1.030) 02/21/18 17:33 Urine Protein 100 mg/dl mg/dL (Negative) 02/21/18 17:33 Urine Glucose (UA) Neg mg/dL (Negative) 02/21/18 17:33 Urine Ketones Neg mg/dL (Negative) 02/21/18 17:33 Urine Blood Neg (Negative) 02/21/18 17:33 Urine Nitrite Neg (Negative) 02/21/18 17:33 Urine Bilirubin Neg (Negative) 02/21/18 17:33 Urine Urobilinogen < 2.0 mg/dL (<2.0) 02/21/18 17:33 Ur Leukocyte Esterase Neg (Negative) 02/21/18 17:33 Urine WBC (Auto) 1.0 /HPF (0.0-6.0) 02/21/18 17:33 Urine RBC (Auto) 1.0 /HPF (0.0-6.0) 02/21/18 17:33 U Epithel Cells (Auto) 1.0 /HPF (0-13.0) 02/21/18 17:33 Urine Mucus 2+ /HPF 02/21/18 17:33 Salicylates < 0.3 mg/dL (2.8-20.0) L 02/21/18 15:43 Urine Opiates Screen Presumptive negative 02/21/18 17:33 Urine Methadone Screen Presumptive negative 02/21/18 17:33 Acetaminophen < 5.0 ug/mL (10.0-30.0) L 02/21/18 15:43 Ur Barbiturates Screen Presumptive negative 02/21/18 17:33 Ur Phencyclidine Scrn Presumptive negative 02/21/18 17:33 Ur Amphetamines Screen Presumptive positive 02/21/18 17:33 U Benzodiazepines Scrn Presumptive negative 02/21/18 17:33 [place] 0.1 mmol/L (0.0-1.2) 02/23/18 20:56 Urine Cocaine Screen Presumptive negative 02/21/18 17:33 U Marijuana (THC) Screen Presumptive positive 02/21/18 17:33 Drugs of Abuse Note Disclamer 02/21/18 17:33 Plasma/Serum Alcohol 0.15 % (0-0.07) H 02/21/18 15:43
[2018-02-26] MEDS: ABILIFY PO SCH (22:23)
[2018-02-26] MEDS: BENADRYL PO PRN (22:30)
[2018-02-27] MEDS: APRESOLINE PO SCH ×3 (06:37→22:39)
--- NOTE | 2018-02-27 12:30 | Progress Note ---
Subjective - Reason for Consult Consult date: 02/27/18 Reason for consult: Psychiatry Follow-up - Chief Complaint Chief complaint: "Hello" 52-year-old single female presented to emergency room via EMS for overdose on trazodone 50mg tablets. Today the patient is calm and cooperative during the assessment. She stated reflecting about her actions prior to her admission to [facility]. She stated that she do not know how many Trazodone pills she swallowed. She is adamant that she wanted to get rest. She did acknowledge that her actions were not safe. She denies SI/HI's and AVH's. She denies any side effects of her medications. She stated that her sleep is "okay." Mental Status Exam - Vital signs Last Vital Signs Temp 99.0 F 02/27/18 08:13 Pulse 97 H 02/27/18 08:13 Resp 16 02/27/18 08:13 BP 123/81 02/27/18 08:13 Pulse Ox 99 02/27/18 08:13 - Exam Narrative exam: MSE: Appearance: calm, cooperative Behavior: regular eye contact Speech: regular rate and tone Mood: "okay" Affect: congruent to mood Thought Process: logical Thought Content: denies SI/HI's and AVH's Motor Activity: lying in bed Cognition: A/O x3 Insight: fair Judgment: fair Assessment and Plan Impression: Bipolar DO, Current Episode Depressed. PTSD. Cannabis Use DO. Alcohol Use DO. Overdosed on Trazodone 50mg (10-20 tablets) DDx: R/O Substance Induced Mood DO Recommendations/Plan: Evaluate 1013 in 24 hours to determine proper dispo. Continue Abilify 10 mg PO Daily for mood, [place] 300 mg PO daily for mood, and Benadryl 25 mg PO HS PRN for sleep. Discussed possible metabolic side effects of Abilify with patient. Discussed proper sleep hygiene. Discussed the importance to abstain from alcohol consumption (etoh).
[2018-02-27] MEDS: ESKALITH PO SCH (13:23)
--- NOTE | 2018-02-27 15:08 | Progress Note ---
Assessment and Plan Assessment and plan: Intentional overdose,trazodone pills - Agent is currently stable Metabolic encephalopathy; multifactorial - Resolved Suicidal attempt - Psych is following and her 1013 will tomorrow and psych said she can go home tomorrow after observing overnight History of alcohol use; No evidence of withdrawal symptoms ,Strongly advised to quit alcohol continue [facility] protocol --DVT prophylaxis;Lovenox Continue 1013 status, will rescind tomorrow Disposition - Patient will be discharged tomorrow History Interval history: Patient was seen and evaluated this morning, patient didn't have any new complaints. Hospitalist Physical - Physical exam Narrative exam: Not in cardiopulmonary distress. The patient appeared well nourished and normally developed. Vital signs as documented. Head exam is unremarkable. No scleral icterus . Neck is without jugular venous distension, thyromegaly, or carotid bruits. Lungs are clear to auscultation. Cardiac exam reveals regular rate and Rhythm. First and second heart sounds normal. No murmurs, rubs or gallops. Abdominal exam reveals normal bowel sounds, no masses, no organomegaly and no aortic enlargement. Extremities are nonedematous and both femoral and pedal pulses are normal. SUPERVISOR PAINT: Alert and oriented 3. No focal weakness. - Constitutional Vitals: Temp Pulse Resp BP Pulse Ox 99.0 F 97 H 16 123/81 99 02/27/18 08:13 02/27/18 08:13 02/27/18 08:13 02/27/18 08:13 02/27/18 08:13 General appearance: Present: no acute distress, well-nourished, obese Results - Labs CBC & Chem 7: 02/25/18 08:40 02/25/18 08:40 Labs: Laboratory Last Values WBC 7.5 K/mm3 (4.5-11.0) 02/25/18 08:40 RBC 4.59 M/mm3 (3.65-5.03) 02/25/18 08:40 Hgb 15.5 gm/dl (10.1-14.3) H 02/25/18 08:40 Hct 44.0 % (30.3-42.9) H 02/25/18 08:40 MCV 96 fl (79-97) 02/25/18 08:40 MCH 34 pg (28-32) H 02/25/18 08:40 MCHC 35 % (30-34) H 02/25/18 08:40 RDW 14.3 % (13.2-15.2) 02/25/18 08:40 Plt Count 164 K/mm3 (140-440) 02/25/18 08:40 Lymph % (Auto) 18.4 % (13.4-35.0) 02/25/18 08:40 [place] % (Auto) 8.1 % (0.0-7.3) H 02/25/18 08:40 Eos % (Auto) 0.5 % (0.0-4.3) 02/25/18 08:40 Baso % (Auto) 0.5 % (0.0-1.8) 02/25/18 08:40 Lymph # 1.4 K/mm3 (1.2-5.4) 02/25/18 08:40 [place] # 0.6 K/mm3 (0.0-0.8) 02/25/18 08:40 Eos # 0.0 K/mm3 (0.0-0.4) 02/25/18 08:40 Baso # 0.0 K/mm3 (0.0-0.1) 02/25/18 08:40 Seg Neutrophils % 72.5 % (40.0-70.0) H 02/25/18 08:40 Seg Neutrophils # 5.5 K/mm3 (1.8-7.7) 02/25/18 08:40 Sodium 137 mmol/L (137-145) D 02/25/18 08:40 Potassium 3.6 mmol/L (3.6-5.0) 02/25/18 08:40 Chloride 98.0 mmol/L (98-107) 02/25/18 08:40 Carbon Dioxide 28 mmol/L (22-30) 02/25/18 08:40 Anion Gap 15 mmol/L 02/25/18 08:40 BUN 4 mg/dL (7-17) L 02/25/18 08:40 Creatinine 0.5 mg/dL (0.7-1.2) L 02/25/18 08:40 Estimated GFR > 60 ml/min 02/25/18 08:40 BUN/Creatinine Ratio 8 % 02/25/18 08:40 Glucose 110 mg/dL (65-100) H 02/25/18 08:40 Calcium 9.5 mg/dL (8.4-10.2) 02/25/18 08:40 Phosphorus 3.90 mg/dL (2.5-4.5) 02/25/18 08:40 Magnesium 1.50 mg/dL (1.7-2.3) L 02/25/18 08:40 Urine Color Yellow (Yellow) 02/21/18 17:33 Urine Turbidity Clear (Clear) 02/21/18 17:33 Urine pH 5.0 (5.0-7.0) 02/21/18 17:33 Ur Specific [place] 1.020 (1.003-1.030) 02/21/18 17:33 Urine Protein 100 mg/dl mg/dL (Negative) 02/21/18 17:33 Urine Glucose (UA) Neg mg/dL (Negative) 02/21/18 17:33 Urine Ketones Neg mg/dL (Negative) 02/21/18 17:33 Urine Blood Neg (Negative) 02/21/18 17:33 Urine Nitrite Neg (Negative) 02/21/18 17:33 Urine Bilirubin Neg (Negative) 02/21/18 17:33 Urine Urobilinogen < 2.0 mg/dL (<2.0) 02/21/18 17:33 Ur Leukocyte Esterase Neg (Negative) 02/21/18 17:33 Urine WBC (Auto) 1.0 /HPF (0.0-6.0) 02/21/18 17:33 Urine RBC (Auto) 1.0 /HPF (0.0-6.0) 02/21/18 17:33 U Epithel Cells (Auto) 1.0 /HPF (0-13.0) 02/21/18 17:33 Urine Mucus 2+ /HPF 02/21/18 17:33 Salicylates < 0.3 mg/dL (2.8-20.0) L 02/21/18 15:43 Urine Opiates Screen Presumptive negative 02/21/18 17:33 Urine Methadone Screen Presumptive negative 02/21/18 17:33 Acetaminophen < 5.0 ug/mL (10.0-30.0) L 02/21/18 15:43 Ur Barbiturates Screen Presumptive negative 02/21/18 17:33 Ur Phencyclidine Scrn Presumptive negative 02/21/18 17:33 Ur Amphetamines Screen Presumptive positive 02/21/18 17:33 U Benzodiazepines Scrn Presumptive negative 02/21/18 17:33 [place] 0.1 mmol/L (0.0-1.2) 02/23/18 20:56 Urine Cocaine Screen Presumptive negative 02/21/18 17:33 U Marijuana (THC) Screen Presumptive positive 02/21/18 17:33 Drugs of Abuse Note Disclamer 02/21/18 17:33 Plasma/Serum Alcohol 0.15 % (0-0.07) H 02/21/18 15:43
[2018-02-27] MEDS: SODIUM CHLORIDE FLUSH SYRINGE 10 ML IV SCH ×2 (18:28→22:39)
[2018-02-27] MEDS: ABILIFY PO SCH (22:35)
[2018-02-27] MEDS: BENADRYL PO PRN (22:38)
[2018-02-28] MEDS: APRESOLINE PO SCH (07:14)
[2018-02-28] MEDS: ESKALITH PO SCH (09:41)
[2018-02-28] MEDS: SODIUM CHLORIDE FLUSH SYRINGE 10 ML IV SCH (09:42)
--- NOTE | 2018-02-28 10:48 | Progress Note ---
Subjective - Reason for Consult Consult date: 02/28/18 Reason for consult: Psychiatry Follow-up - Chief Complaint Chief complaint: "I have learned my lesson" 52-year-old single [place] female presented to emergency room via EMS for overdose on trazodone 50mg tablets. Today the patient is calm and cooperative during the assessment. She stated that her decision to take multiple Trazodone pills was not a good choice. Per collateral information from Eulogio Eaton at [phone], she stated that her cousin was overwhelmed. She stated that she feels that the patient will be safe if discharged home. She stated being the patient's support system. The patient denies SI/HI's and AVH's. She stated sleeping more last night than the previous night. She denies any side effects of her medications. Mental Status Exam - Vital signs Last Vital Signs Temp 98.1 F 02/28/18 07:49 Pulse 97 H 02/28/18 07:49 Resp 18 02/28/18 07:49 BP 135/91 02/28/18 07:49 Pulse Ox 99 02/28/18 07:49 - Exam Narrative exam: MSE: Appearance: calm, cooperative Behavior: regular eye contact Speech: regular rate and tone Mood: "okay" Affect: congruent to mood Thought Process: logical Thought Content: denies SI/HI's and AVH's Motor Activity: lying in bed Cognition: A/O x3 Insight: appropriate Judgment: appropriate Assessment and Plan Impression: Bipolar DO, Current Episode Depressed. PTSD. Cannabis Use DO. Alcohol Use DO. Overdosed on Trazodone 50mg (10-20 tablets). The patient is no threat to self. DDx: R/O Substance Induced Mood DO I. This screening and assessment is based on information collected from the following sources: II. SUICIDE RISK SCREENING (within last 30 days): A.) Suicidal thoughts/behaviors: Yes SUICIDE RISK ASSESSMENT III. FACTORS THAT INCREASE RISK: A.) Demographic and Substance Use Factors: Yes (Marijuana and ETOH) B.) Current/Recent Factors (within past 3 months): Psychosocial/Environmental Factors: Life Stressors Physical Illness: None Cognitive/Psychological Factors: None C.) Historical Factors: None D.) Diagnostic/Symptom/Treatment Factors: None E.) Acute Risk Factor Severity (DESC; MILD/MOD/SEVERE): Mild Other factors for this individual that increase risk: None IV. FACTORS THAT DECREASE RISK: Resilience/Protective Factors: Patient want to decrease her stress Other factors for this individual that decrease risk: Patient denies a desire to harm self V. Clinician's Formulation of Risk and Determination of level of Care: This is a 53-year-old AA female who took multiple Trazodone pills. She stated having multiple life stressors prior to taking the pills and at the time didn't care about waking up because she had a headache. She stated that she should have not taken the pills, because that was not a safe act. She stated that she will follow-up with outpatient psy/rehab services once discharged. Since being hospitalized the patient has consistently denied the desire to harm herself. Additionally, she has become insightful about how to better address her current issues. The patient is not impaired by substance. She is able to take care of her ADLs and is not at imminent risk of harm to self or others. Consequently, it is the opinion of the treatment team that the patient is at low risk of suicide and does not meet criteria to continue an involuntary psychiatric hold. Estimation of Imminent Risk: Low due to the above explanation. Determination of Level of Care based on Suicide Risk: Outpatient follow-up. Narrative description of clinical reasoning. (This must be completed on all patients): . Plan and Interventions based on Suicide Risk: This patient will likely be stepped down to an outpatient mental health center in the community upon discharge and follow-up within 7 days of her discharge from the hospital. VII. Discharge/After Hours Support Plan: Patient can return back to the ER, call 911 or crisis line if symptoms of depression, anxiety, suicidality return. Recommendations/Plan: Rescind 1013. Continue Abilify 10 mg PO Daily for mood, [place] 300 mg PO daily for mood, and Benadryl 25 mg PO HS PRN for sleep. Discussed possible metabolic side effects of Abilify with patient. Discussed proper sleep hygiene. Discussed the importance to abstain from alcohol consumption (etoh). The patient can follow up with [facility] or the [place] for outpatient psy/rehab services. Also, the patient was given outpatients psy/ rehab services by [facility].
--- NOTE | 2018-02-28 10:49 | Discharge Summary ---
Providers - Providers Date of Admission: 02/21/18 20:22 Attending physician: ROWAN GREENWOOD MD 02/22/18 08:09 psychiatry consult [Consult to Mental Health] [CONS] Routine Reason For Exam: drug overdose /? suicidal attempt Place consult to:: Mental Health Notified:: Liliam RODRIGUEZadult live in caregiver physician: ENGINEERING LEADER Hospitalization Reason for admission: Drug overdose Condition: Stable Disposition: DC-01 TO HOME OR SELFCARE Time spent for discharge: 31 minutes - Discharge Diagnoses (1) Alcohol withdrawal Status: Acute Qualifiers: Complication of substance-induced condition: with delirium Qualified Code(s ): F10.231 - Alcohol dependence with withdrawal delirium (2) Drug overdose, intentional Status: Acute Qualifiers: Encounter type: initial encounter Qualified Code(s): T50.902A - Poisoning by unspecified drugs, medicaments and biological substances, intentional self- harm, initial encounter (3) Encephalopathy Status: Acute (4) Overdose Status: Acute Qualifiers: Encounter type: initial encounter Injury intent: intentional self-harm Qualified Code(s): T50.902A - Poisoning by unspecified drugs, medicaments and biological substances, intentional self-harm, initial encounter (5) Suicidal ideation Status: Acute (6) Suicide attempt Status: Acute Core Measure Documentation - Palliative Care Palliative Care/ Comfort Measures: Not Applicable - Core Measures Any of the following diagnoses?: none Exam - Physical Exam Narrative exam: Not in cardiopulmonary distress. The patient appeared well nourished and normally developed. Vital signs as documented. Head exam is unremarkable. No scleral icterus . Neck is without jugular venous distension, thyromegaly, or carotid bruits. Lungs are clear to auscultation. Cardiac exam reveals regular rate and Rhythm. First and second heart sounds normal. No murmurs, rubs or gallops. Abdominal exam reveals normal bowel sounds, no masses, no organomegaly and no aortic enlargement. Extremities are nonedematous and both femoral and pedal pulses are normal. LEADER WRITER: Alert and oriented 3. No focal weakness. - Constitutional Vitals: Temp Pulse Resp BP Pulse Ox 98.1 F 97 H 18 135/91 99 02/28/18 07:49 02/28/18 07:49 02/28/18 07:49 02/28/18 07:49 02/28/18 07:49 Plan Activity: no restrictions Weight Bearing Status: Full Weight Bearing Diet: low cholesterol Follow up with: PRIMARY CAREMD [Primary Care Provider] - 7 Days
[2018-02-28 12:55] VITALS: BP 134/85
== END 2018-02-28 13:00 | disposition home or self-care (01) | DRG 917 ==
LOC: ED 14:38 → EEVIPCON 20:22 → 4A 20:22 → 3A 02-25 17:34
PROVIDERS: ADMIT Internal Medicine; ATTEND Internal Medicine
DX: T43.212A Poisoning by selective serotonin and norepinephrine reuptake inhibitors, intentional self-harm, initial encounter (principal); G93.41 Metabolic encephalopathy; F10.239 Alcohol dependence with withdrawal, unspecified; T14.91XA Suicide attempt, initial encounter; F17.200 Nicotine dependence, unspecified, uncomplicated; I10 Essential (primary) hypertension; Y90.9 Presence of alcohol in blood, level not specified; F43.10 Post-traumatic stress disorder, unspecified; F41.9 Anxiety disorder, unspecified; F31.9 Bipolar disorder, unspecified; J45.909 Unspecified asthma, uncomplicated; Y92.89 Other specified places as the place of occurrence of the external cause; Z82.49 Family history of ischemic heart disease and other diseases of the circulatory system; Z71.6 Tobacco abuse counseling
CPT/HCPCS: 36415; 70450; 80048; 80178; 80307; 80320; 81001; 83735; 84100; 85025; 93005; 93010; 94760; 96374; 99406; G0480; J3411; J7030